=== PATIENT | male | born 1990 | race Caucasian/White ===

== ENCOUNTER 2017-03-03 15:19 | Emergency (ER) | payer SELFPAY | END 2017-03-03 17:31 | disposition home or self-care (01) | LOC: D.ER 15:19 | DX: S16.1XXA Strain of muscle, fascia and tendon at neck level, initial encounter (principal); V89.2XXA Person injured in unspecified motor-vehicle accident, traffic, initial encounter; Y93.89 Activity, other specified; Y92.89 Other specified places as the place of occurrence of the external cause; F31.89 Other bipolar disorder ==

== ENCOUNTER 2018-12-05 10:01 | Day surgery (SDC) | payer SELFPAY ==
[~2018-12-05] VITALS: Ht 170.2 cm; Wt 77.3 kg
[2018-12-05 10:30] VITALS: Ht 170.2 cm; Wt 77.3 kg
[2018-12-05 11:54] VITALS: BP 120/78
--- NOTE | 2018-12-05 12:21 | NUR ---
DR. MOSLEY HERE TO SEE PT. ORDERS FOR SURGERY RECEIVED. CONSENTS SIGNED BY PT.
[2018-12-05 12:33] LABS: BASOPHILS 0.1 % (0-2); EOSINOPHILS 0.1 % (0-7); HEMATOCRIT 44.8 % (42.0-54.0); HEMOGLOBIN 16.3 g/dL (13.5-17.5); IMMATURE GRANULOCYTES 0.5 % (0-5); MCH 31.2 pg (26.0-34.0); MCHC 36.4 g/dL (31.0-37.0); MCV 85.7 fL (80.0-100.0); MEAN PLATELET VOLUME 11.1 fL (7.4-10.4); MONOCYTES 6.7 % (2-11); NEUTROPHILS 80.6 % (40-80); PLATELET COUNT 316 10x3/uL (130-400); RBC 5.23 10x6/uL (4.20-6.10); RDW 13.7 % (11.5-14.5); WBC 13.5 10x3/uL (4.8-10.8)
--- NOTE | 2018-12-05 12:41 | NUR ---
T-DAP GIVEN IN RIGHT ARM, LOT # [id number] EXP. DATE 03/27/20 PT SABRINA. BREANNA. UNABLE TO CHART ON OCT.
[2018-12-05 12:47] LABS: ALBUMIN 4.4 g/dL (3.4-5.0); ALKALINE PHOSPHATASE 81 U/L (46-116); ALT (SGPT) 36 U/L (10-68); BILIRUBIN - TOTAL 1.39 mg/dL (0.2-1.3); CALC OSMOLALITY 276 mosm/kg (275-300); CALCIUM 8.6 mg/dL (8.5-10.1); CARBON DIOXIDE 23.6 mmol/L (21.0-32.0); CHLORIDE - SERUM 104 mmol/L (98-107); CREATININE - SERUM 1.1 mg/dL (0.6-1.3); GLUCOSE 120 mg/dL (74-106); POTASSIUM - SERUM 4.6 mmol/L (3.5-5.1); PROTEIN - SERUM 7.8 g/dL (6.4-8.2); SODIUM 137 mmol/L (136-145); UREA NITROGEN 18 mg/dL (7-18); eGFR NON AFRICAN AMERICAN 86 mL/min (90-120)
[2018-12-05 13:00] VITALS: BP 123/76
[2018-12-05 14:02] VITALS: BP 123/68
[2018-12-05 14:56] VITALS: BP 123/76
--- NOTE | 2018-12-05 15:09 | NUR ---
PT AWAKE, RESTING IN BED, STATES HE IS STARTING TO HURT MORE IN THAT HAND SINCE HE CAN MOVE HIS FINGERS BETTER.
[2018-12-05] MEDS ORDERED: PERCOCET 5-3251 TAB PO (18:37)
[2018-12-05] MEDS ORDERED: DURICEF500 MG PO (18:37)
--- NOTE | 2018-12-05 19:02 | NUR ---
DIASTOLIC PRSSURES REMAIN >100; PATIENT STATES "MY BLOOD PRESSURE IS ALWAYS HIGH LIKE 160/120'S. WHEN I'M WORKING IF I BEND OVER AND STAND UP I SEE STARS AND STUFF LIKE THAT OR ILL BE DIZZY SOMETIMES." ANESTHESIA AT BEDSIDE AT THIS TIME; EDUCATION ON FURTHER FOLLOW-UP WITH NEEDED WITH GP. PATIENT STATES UNDERSTANDING.
[2018-12-05 19:42] VITALS: BP 148/102
--- NOTE | 2018-12-05 19:42 | NUR ---
RECEIVED TO FLOOR FROM SURGERY FOR WAKE UP BED, PT DROWSY BUT A&O, DENIES NEEDS, AT THIS TIME, BP ELEVATED 142/102, WILL CONTINUE TO MONITOR AND NOTIFY DR MOSLEY IF BP CONTINUES TO ELEVATE
--- NOTE | 2018-12-05 21:32 | NUR ---
PT UP TO BATHROOM, DENIES NEEDS, STATED HE'D NOTIFY ME WHEN HE'S READY TO GO
--- NOTE | 2018-12-05 21:52 | NUR ---
DISCHARGE INSTRUCTIONS GIVEN QUESTIONS ANSWERED, PRESCRIPTION FOR DURICEF AND PERCOCET GIVEN, IV TO LAC REMOVED TIP INTACT, DC WITH BELONGINGS PER WC
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
--- NOTE | 2018-12-07 16:58 | MORECARE ---
CASE MANAGEMENT DISCHARGE SUMMARY PATIENT: RNOY REIS UNIT: [id number] ADM DATE: 12/05/18 AGE: 28 : [birth year] SEX: M ROOM/BED: D.2238 AUTHOR: DIEGO SAGE PHYSICIAN: REFERRING PHYSICIAN: ACOSTA MOSLEY DO DATE OF SERVICE: 12/07/18 Discharge Plan Patient Name: [facility]ONY REIS [facility] [facility] 1990 Planned Disposition: Anticipated Discharge Date: Discharge Date: 12/05/2018 Expected LOS: 0 Initial Reviewer: [email or web address] Initial Review Date: 12/07/2018 Generated: 12/07/18 5:58 pm Patient Name: RONY REIS Page [id number] at 1658 All edits/amendments must be made on the electronic document DICTATION DATE: 12/07/181656 LONG WINDER TENDER: NIKOS 12/07/181656 RPT#: [id number] DC DATE:12/05/18 STATUS: DIS IN [facility] [address] [place] [address] END OF REPORT
== END 2018-12-05 21:53 | disposition home or self-care (01) | DRG 514 ==
LOC: D.OPS 10:01 → D.ER 10:01 → D.EDHOLD 12:23 → D.ER 12:23 → EDSTATUS 16:31 → D.ER 18:36 → D.MS 19:31 → D.EDHOLD 19:31 → D.MS 21:53 → D.OPS 21:53
PROVIDERS: Family Medicine; ATTEND Orthopaedic Surgery
PROC: 0HQFXZZ Repair Right Hand Skin, External Approach (ICD-10-PCS; 2018-12-05)
PROC: 0LQ70ZZ Repair Right Hand Tendon, Open Approach (ICD-10-PCS; principal; 2018-12-05 17:30)
DX: S66.221A Laceration of extensor muscle, fascia and tendon of right thumb at wrist and hand level, initial encounter (principal); S61.511A Laceration without foreign body of right wrist, initial encounter